=== PATIENT | female | born 1995 | race American Indian/Alaskan Native ===

== ENCOUNTER 2018-11-21 15:31 | Emergency (ER) | payer SELFPAY ==
[2018-11-21 15:47] VITALS: BP 119/76
--- NOTE | 2018-11-21 16:48 | Event Note ---
ED Screening Note ED Screening Note: This initial assessment/diagnostic orders/clinical plan/treatment(s) is/are subject to change based on patients health status, clinical progression and re- assessment by fellow clinical providers in the ED. Further treatment and workup at subsequent clinical providers discretion. Patient/guardian urged not to elope from the ED as their condition may be serious if not clinically assessed and managed. Initial orders include: 22 yo female states that she has R ear pain and a headache that has been intermittent x 1 day.
== END 2018-11-21 19:30 | disposition left against medical advice (07) ==
LOC: ED 15:31
DX: H93.8X1 Other specified disorders of right ear (principal); R51 Headache; Z53.21 Procedure and treatment not carried out due to patient leaving prior to being seen by health care provider

== ENCOUNTER 2018-11-29 04:04 | Emergency (ER) | payer SELFPAY ==
[2018-11-29] MEDS ORDERED: MORPHINE 4 MG/1 ML INJ IV ONE (04:23)
[2018-11-29] MEDS ORDERED: SODIUM CHLORIDE 0.9% 1000 ML 1,000 ML IV ONE (04:23)
--- NOTE | 2018-11-29 04:25 | Event Note ---
Date: 11/29/18 Medical screening examination note: 22-year-old female presenting with back pain and abdominal pain, vaginal bleeding and cramping, last menstrual period beginning of October, end of September, she is not sure if she is , reports that this is heavier bleeding for her than usual. To the best of her recollection, she is 2, para 1. Plan is to treat her pain, check basic laboratory studies, pelvic ultrasound. The patient is afebrile with reassuring vital signs, protecting her airway at this time, and hemodynamically stable. Vital Signs 11/29/18 04:07 Temperature 97.9 F Pulse Rate 104 H Respiratory 18 Rate Blood Pressure 128/92 O2 Sat by Pulse 98 Oximetry
[2018-11-29 05:11] LABS: Basophils % (Auto) 0.4 % (0.0-1.8); Eosinophils # (Auto) 0.1 K/mm3 (0.0-0.4); Hematocrit 39.7 % (30.3-42.9); Hemoglobin 12.9 gm/dl (10.1-14.3); Lymphocytes # (Auto) 3.8 K/mm3 (1.2-5.4); Lymphocytes % (Auto) 38.4 % (13.4-35.0); Mean Corpuscular HGB Conc 32 % (30-34); Mean Corpuscular Volume 80 fl (79-97); Monocytes # (Auto) 0.8 K/mm3 (0.0-0.8); Monocytes % (Auto) 8.2 % (0.0-7.3); Platelet Count 269 K/mm3 (140-440); Red Blood Count 4.99 M/mm3 (3.65-5.03); Red Cell Distribution Width 16.7 % (13.2-15.2)
[2018-11-29] MEDS ORDERED: ONDANSETRON 4 MG/2 ML INJ IV ONE (05:35)
[2018-11-29 05:36] LABS: Alanine Aminotransferase 11 units/L (7-56); BUN/Creatinine Ratio 13; Blood Urea Nitrogen 9 mg/dL (7-17); Hemolysis Index 11
[2018-11-29] MEDS ORDERED: ONDANSETRON 4 MG/2 ML INJ ONE (05:38)
--- NOTE | 2018-11-29 05:48 | Ultrasound Report ---
ULTRASOUND OBSTETRIC INDICATION / CLINICAL INFORMATION: vag bleed crampsing pain. Clinical Gestational Age (GA): 6 weeks 1 day TECHNIQUE: Transabdominal and Transvaginal. COMPARISON: None available. FINDINGS: UTERUS: The uterus measures 8.7 x 4.2 x 4.8 cm. The endometrium measures 11 mm in thickness. There is no evidence of intrauterine of at least 4-5 weeks gestational age. ADNEXA: No significant abnormality. Both ovaries are normal in appearance. No adnexal mass identified . FREE FLUID: None. ADDITIONAL FINDINGS: None. IMPRESSION: 1. No evidence of an intrauterine of at least 4-5 weeks gestational age. Findings compatibl e with of unknown location, with differential considerations including early intrauterine p regnancy, early ectopic, or completed miscarriage. Recommend correlation with beta-hCG trend and foll ow-up ultrasound as needed. Signer Name: Ami Fonseca MD Signed: 11/29/2018 5:44 AM Workstation Name: [id number]
[2018-11-29 06:07] LABS: Bacteria,Urine 1+ /HPF (Negative); Bilirubin,Urine NEG (Negative); Blood,Urine LG (Negative); Color,Urine Yellow (Yellow); Mucus,Urine FEW /HPF; Protein,Urine <15 mg/dL mg/dL (Negative); Urobilinogen,Urine < 2.0 mg/dL (<2.0)
--- NOTE | 2018-11-29 06:33 | Emergency Department Report ---
HPI - General Chief Complaint: Abdominal Pain Time Seen by Provider: 11/29/18 05:56 - HPI HPI: 22-year-old -[place] female presents to the emergency department with complaint of lower abdominal and pelvic pain, low back pain and vaginal bleeding, this been going on for the past 2 days. The patient thought that it is possible she had a miscarriage as she last had a menstrual cycle at the end of September/early October. If she is , she would be . She otherwise has no past medical history. She took a muscle relaxer for her pain with some relief. She denies any dysuria, vaginal discharge, fever. She does not have a primary care physician or [facility]. No recent travel or sick contacts at home. ED Past Medical Hx - Past Medical History Previous Medical History?: Yes Hx Psychiatric Treatment: Yes - Surgical History Past Surgical History?: No - Social History Smoking Status: Former Smoker Substance Use Type: None - Medications Home Medications: Home Medications Medication Instructions Recorded Confirmed Last Taken Type Docusate Sodium [Colace] 100 mg PO BID PRN #20 capsule 11/29/18 Unknown Rx Magnesium Citrate [Citrate of 300 ml PO NOW PRN #1 bottle 11/29/18 Unknown Rx Magnesia] ED Review of Systems ROS: Stated complaint: ABD PAIN Other details as noted in HPI Comment: All other systems reviewed and negative Constitutional: denies: chills, fever Respiratory: denies: shortness of breath Cardiovascular: denies: chest pain Gastrointestinal: abdominal pain. denies: nausea, vomiting Genitourinary: abnormal menses. denies: dysuria, discharge Musculoskeletal: back pain. denies: arthralgia Skin: denies: rash, lesions Neurological: denies: weakness, numbness Physical Exam - Physical Exam Vital Signs: Vital Signs 11/29/18 04:07 Temperature 97.9 F Pulse Rate 104 H Respiratory 18 Rate Blood Pressure 128/92 O2 Sat by Pulse 98 Oximetry Physical Exam: GENERAL: The patient is well-developed well-nourished. HENT: Normocephalic. Atraumatic. Patient has moist mucous membranes. EYES: Extraocular motions are intact. NECK: Supple. Trachea is midline. CHEST/LUNGS: Clear to auscultation. There is no respiratory distress noted. HEART/CARDIOVASCULAR: Regular. There is no tachycardia. There is no murmur. ABDOMEN: Abdomen is soft. Mild lower abdominal tenderness to palpation. No guarding. Patient has normal bowel sounds. There is no abdominal distention. SKIN: Skin is warm and dry. NEURO: The patient is awake, alert, and oriented. The patient is cooperative. The patient has no focal neurologic deficits. Normal speech. MUSCULOSKELETAL: There is no tenderness or deformity. There is no limitation range of motion. There is no evidence of acute injury. BACK: No midline thoracic or lumbar tenderness to palpation, step-off or de formity. There is some reproducible lumbar bilateral paraspinal tenderness to palpation. ED Course Vital Signs 11/29/18 04:07 Temperature 97.9 F Pulse Rate 104 H Respiratory 18 Rate Blood Pressure 128/92 O2 Sat by Pulse 98 Oximetry ED Medical Decision Making - Lab Data Result diagrams: 11/29/18 04:28 11/29/18 04:28 - Radiology Data Radiology results: report reviewed, image reviewed interpreted by me: Abdominal x-ray shows nonspecific nonobstructive bowel gas. Increased stool volume. ULTRASOUND OBSTETRIC INDICATION / CLINICAL INFORMATION: vag bleed crampsing pain. Clinical Gestational Age (GA): 6 weeks 1 day TECHNIQUE: Transabdominal and Transvaginal. COMPARISON: None available. FINDINGS: UTERUS: The uterus measures 8.7 x 4.2 x 4.8 cm. The endometrium measures 11 mm in thickness. There is no evidence of intrauterine of at least 4-5 weeks gestational age. ADNEXA: No significant abnormality. Both ovaries are normal in appearance. No adnexal mass identified. FREE FLUID: None. ADDITIONAL FINDINGS: None. IMPRESSION: 1. No evidence of an intrauterine of at least 4-5 weeks gestational age. Findings compatible with of unknown location, with differential considerations including early intrauterine , early ectopic, or completed miscarriage. Recommend correlation with beta-hCG trend and follow-up ultrasound as needed. - Medical Decision Making This patient presents with a 2 day history of some lower abdominal and lower back pain, as well as vaginal bleeding. She is a few weeks past due for her menstrual cycle. Negative test with both qualitative and quantitative levels. Ultrasound does not show any signs of intrauterine . It does show some thickening to the endometrium so it was read by radiology as possibility of both early versus miscarriage. However the quantitative level is 0. Labs have been unremarkable including CBC, metabolic panel and urinalysis. The patient is feeling improved with the muscle relaxer that she took at home prior to arrival. Despite her back pain, she has no problems with bowel or bladder, numbness or paresthesias or any neurological deficits. She appears low suspicion for any of the emergent back conditions s uch as cauda equina, epidural abscess or cord compression syndrome. The patient was seen ambulatory in the emergency department prior to discharge and appears stable. She appears safe for discharge home at this time. Vital signs stable throughout her ED course. 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 She will return to the emergency Department with any worsening of her symptoms or any acute distress. - Differential Diagnosis , dysfunctional uterine bleeding, fibroids, UTI Critical Care Time: No Critical care attestation.: If time is entered above; I have spent that time in minutes in the direct care of this critically ill patient, excluding procedure time. ED Disposition Clinical Impression: Dysfunctional uterine bleeding, Increased stool volume Abdominal pain Qualifiers: Abdominal location: lower abdomen, unspecified Qualified Code(s): R10.30 - Lower abdominal pain, unspecified Back pain Qualifiers: Back pain location: low back pain Chronicity: unspecified Back pain laterality: bilateral Sciatica presence: without sciatica Qualified Code(s): M54.5 - Low back pain Disposition: - TO HOME OR SELFCARE Is pt being admited?: No Condition: Stable Instructions: Dysfunctional Uterine Bleeding (ED), Constipation (ED), Abdominal Pain (ED), Back Pain (ED) Additional Instructions: Please follow-up with a primary care physician and BL[facility] [employer]M EXTRUSION OPERATOR in the next few days. Return to the emergency Department with any worsening of your symptoms or any acute distress. Prescriptions: Magnesium Citrate [Citrate of Magnesia] 300 ml PO NOW PRN #1 bottle PRN Reason: Constipation Docusate Sodium [Colace] 100 mg PO BID PRN #20 capsule PRN Reason: Constipation Referrals: [facility] [Provider Group] - 3-5 Days [facility] [Provider Group] - 3-5 Days [facility] [place] [Outside] - 3-5 Days [facility] [Primary Care Provider] - 3-5 Days
--- NOTE | 2018-11-29 07:00 | XRay Report ---
ABDOMEN 2 VIEW(S) INDICATION / CLINICAL INFORMATION: abd pain. COMPARISON: None available. FINDINGS: TUBES / LINES: None. BOWEL GAS PATTERN: No significant abnormality. FREE AIR / EXTRALUMINAL GAS: None seen. ADDITIONAL FINDINGS: No significant additional findings. IMPRESSION: 1. No significant abnormality. Signer Name: Ami Fonseca MD Signed: 11/29/2018 6:56 AM Workstation Name: [id number]
[2018-11-29 07:28] VITALS: BP 122/80
== END 2018-11-29 07:43 | disposition home or self-care (01) ==
LOC: ED 04:04
DX: N93.8 Other specified abnormal uterine and vaginal bleeding (principal); R10.30 Lower abdominal pain, unspecified; M54.5 Low back pain; R19.5 Other fecal abnormalities; Z87.891 Personal history of nicotine dependence
CPT/HCPCS: 36415; 74019; 76801; 76817; 80053; 81001; 82550; 83735; 84702; 84703; 85025; 86850; 86900; 86901; 96374; 96375; 99285; J2270; J2405; J7030